=== PATIENT | female | born 1950 | race Caucasian/White ===

== ENCOUNTER → 2023-05-21 12:48 | Outpatient (CLI) | payer MEDICARE, OTHER, SELFPAY ==
[2023-05-21 13:51] LABS: Alanine Aminotransferase 24 IU/L (<35); Cholesterol 192 mg/dL (140-199); HDL Cholesterol 80 mg/dL (40-60); LDL Cholesterol Calculated 97 mg/dL (<100); Triglycerides 73 mg/dL (35-150)
== END ==
PROVIDERS: Referring Provider Family Medicine; Visit Provider Family Medicine
DX: E78.00 Pure hypercholesterolemia, unspecified (principal)
CPT/HCPCS: 36415; 80061; 84460